=== PATIENT | female | born 1970 | race Caucasian/White ===

== ENCOUNTER → 2021-03-20 | Day surgery (SDC) | payer BC, OTHER ==
[~2021-03-20] MED LIST: DAILY VITE1 EACH PO; ESCITALOPRAM OX20 MG PO; LISINOPRIL-HCT1 EACH PO; METFORMIN HCL1000 MG PO; SIMVASTATIN20 MG PO; TRULICITY1.5 MG/0.5 SQ; VITAMIN D21250 MCG PO
== END | disposition home or self-care (01) ==
LOC: OR 06:40
DX: Z12.11 Encounter for screening for malignant neoplasm of colon (principal); K64.4 Residual hemorrhoidal skin tags; I10 Essential (primary) hypertension; E11.9 Type 2 diabetes mellitus without complications; E78.5 Hyperlipidemia, unspecified; F32.9 Major depressive disorder, single episode, unspecified; Z79.84 Long term (current) use of oral hypoglycemic drugs; Z79.899 Other long term (current) drug therapy
CPT/HCPCS: 82962; J0461; J2704; J7120

== ENCOUNTER → 2021-04-05 | Outpatient (CLI) | payer BC, OTHER | LOC: DTC 10:15 | DX: E11.65 Type 2 diabetes mellitus with hyperglycemia (principal) | CPT/HCPCS: G0271 ==